=== PATIENT | female | born 1980 | race Native Hawaiian/Other Pacific Islander ===

== ENCOUNTER 2021-01-28 14:25 | Inpatient (IN) | payer MEDICARE, MEDICAID ==
[~2021-01-28] VITALS: Ht 152.4 cm; Wt 101.3 kg
[2021-01-28 16:49] VITALS: BP 194/81; PULSE 78; TEMP 97.8
--- NOTE | 2021-01-28 18:25 | NUR ---
Patient experiencing chest pain when leaning forward or coughing. Patient coughing frequently from CPR being performed, some clear sputum has been present. Patient admitted with an IV in the right AC. Two lab techs attempted to draw labs on the patient, they were unsuccessful. Charge nurse, Sal, attempted and specimens hemolyzed. Jose Angel was notified and called front desk assistant, Mindi, who accessed her dialysis cath and melissa labs. EKG was performed as ordered by Dr. Walter and Dr. Jurado. Heat pad was placed for patient's comfort. All admission paperwork was completed.
[2021-01-28 18:44] LABS: HEMOGLOBIN 11.1 g/dl (12.5-16.0); MEAN CELL VOLUME 95 fl (80.0-100.0); MEAN CORPUSCULAR HEMOGLOBIN 31 pg (27.0-31.0); MEAN CORPUSCULAR HGB CONC 33 g/dl (33.0-37.0); MEAN PLATELET VOLUME 9.2 fl (7.4-10.4); PLATELET COUNT 191 K/mm3 (130-400); RED BLOOD COUNT 3.53 M/mm3 (4.10-5.30); REDCELL DISTRIBUTION WIDTH-CV 17.6 % (11.5-14.5)
[2021-01-28 18:47] VITALS: BP 205/81; PULSE 82; TEMP 97.9
[2021-01-28 18:49] LABS: HEMATOCRIT 33.6 % (37.0-47.0)
[2021-01-28 18:55] LABS: ALBUMIN 3.9 gm/dL (3.5-5.0); BILIRUBIN,TOTAL 0.8 mg/dL (0.0-1.0); CALCIUM 8.6 mg/dL (8.4-10.2); CREATININE, serum 6.88 (0.52-1.25); POTASSIUM 4.4 mmol/L (3.4-5.0); TOTAL PROTEIN 8.5 gm/dL (6.4-8.2)
[2021-01-28 19:57] LABS: ANISOCYTOSIS 1+; BAND 1 % (0-10); LYMPHOCYTE 2 % (20.0-51.0); NEUTROPHILS 97 % (42.0-75.2); PLATELET ESTIMATE NORMAL (NORMAL)
[2021-01-28 20:00] VITALS: BP 148/66; PULSE 78
[2021-01-28 20:00] LABS: HYPOCHROMIA 1+
[2021-01-28 20:12] LABS: TROPONIN-I 0.126 ng/mL (0.000-0.035)
--- NOTE | 2021-01-28 21:31 | NUR ---
Assessment completed, alert and oriented. is at bedside, patient complaining of pain. Refused to get pain meds says that she got Tylenol at about 1800 will wait for more hour. Blood pressure was high as reported. Hydralazine given in previous shift. BP taken again it was 148/66. RN got a call from Lab for critical trop value of 0.126. Her latet WBC is 22.9. Dr Gill notified at around 2018. No order given.
[2021-01-28 23:56] VITALS: PULSE 80; TEMP 98.6
[2021-01-29 07:53] VITALS: BP 182/69; PULSE 92; TEMP 97.8
[2021-01-29 08:24] VITALS: BP 182/69; PULSE 92; TEMP 97.8
[2021-01-29 09:50] LABS: BASO # 0.1 (0.0-0.2); BASO % 0.4 % (0.0-2.0); EOS # 0.4 (0.0-0.7); EOS % 1.7 % (0-4.0); GRAN # 16.4 (1.4-6.5); GRAN % 78.6 % (42.2-75.2); HEMOGLOBIN 10.8 g/dl (12.5-16.0); LYMPH # 2.7 (1.2-3.4); MEAN CELL VOLUME 94 fl (80.0-100.0); MEAN CORPUSCULAR HEMOGLOBIN 31 pg (27.0-31.0); MEAN CORPUSCULAR HGB CONC 33 g/dl (33.0-37.0); MEAN PLATELET VOLUME 9.6 fl (7.4-10.4); MONO # 1.2 (0.1-0.6); MONO % 5.7 % (1.7-9.3); PLATELET COUNT 208 K/mm3 (130-400); RED BLOOD COUNT 3.54 M/mm3 (4.10-5.30); REDCELL DISTRIBUTION WIDTH-CV 17.3 % (11.5-14.5)
[2021-01-29 09:55] LABS: ALBUMIN 3.9 gm/dL (3.5-5.0); CALCIUM 8.4 mg/dL (8.4-10.2); CREATININE, serum 8.48 (0.52-1.25); POTASSIUM 4.5 mmol/L (3.4-5.0)
[2021-01-29 09:57] LABS: HEMATOCRIT 33.1 % (37.0-47.0)
[2021-01-29 10:10] LABS: TROPONIN-I 0.085 ng/mL (0.000-0.035)
[2021-01-29 10:22] LABS: PHOSPHOROUS 4.1 mg/dL (2.5-4.5)
[2021-01-29] MEDS ORDERED: NORVASC 10MG10 MG PO (11:04)
[2021-01-29] MEDS ORDERED: AURYXIA1 GM PO (11:06)
[2021-01-29] MEDS ORDERED: PHOS LO (11:07)
[2021-01-29] MEDS ORDERED: COREG12.5 MG PO (11:08)
[2021-01-29] MEDS ORDERED: COZAAR100 MG PO (11:08)
[2021-01-29] MEDS ORDERED: RENA-VITE1 TAB PO (11:10)
[2021-01-29] MEDS ORDERED: DIOVAN 80MG80 MG PO (11:11)
[2021-01-29 12:38] VITALS: BP 194/69; PULSE 79; TEMP 98.4
--- NOTE | 2021-01-29 14:10 | NUR ---
CARLOS met with the patient and her , Jose (ph#[phone]), to discuss discharge plan. The patient lives in [place] with her and four children. She reports indepedence with ADLs and does not have any DME. The patient states that she does not have a PCP yet. She reports that she recently moved here from [facility]. She states that her sister, Mili (ph#[phone]), is an RN and also her caregiver. She reports that Mili is getting her set up with a PCP. She receives her medications from [facility] and she reports no difficulties obtaining her meds. The patient does not have a DPOA-HC, but she states that she is working on getting one completed. The patient plans to return home with her family upon discharge. No additional needs at this time. *Discharge plan: home with family*
[2021-01-29 17:43] VITALS: BP 228/88; PULSE 81; TEMP 97.3
--- NOTE | 2021-01-29 17:51 | NUR ---
Patient had an echo this morning and was supposed to have a lexiscan as well. Patient was unable to lay flat d/t the pain she has been experiencing, so lexiscan was not completed. Nephrology ordered 1 mg of dilaudid for the patient's pain, but she had already recieved a hydrocodone/acetaminophen. This RN was instructed to still give the dilaudid, but the patient was sleeping and would fall back asleep during conversation. This RN told nephrology SURVEYING [employer]W STAKE RUNNERJuanita, that I did not feel comfortable giving her this medication as she was already sleeping. Juanita assessed and said to hold the dilaudid. Due to these events, the lexiscan was unable to be completed today. Patient has been sleeping comfortable in bed, and when awaken she begins moaning/coughing in pain. This RN gave the patient her ordered medications as well as 2 PRN pain medications. Patient does not ask for pain medication when she is just sitting in bed, but when she begins moving or coughing, the pain becomes extreme. The has been in the room and assisting the patient with whatever she needs.
[2021-01-29 21:35] VITALS: BP 183/72; PULSE 75
--- NOTE | 2021-01-29 21:36 | NUR ---
PT VITAL SIGNS RECHECKED AFTER IV PAIN MEDICATION GIVEN, VS STABLE AT THIS TIME. WILL CONTINUE TO MONITOR.
--- NOTE | 2021-01-29 22:00 | NUR ---
THIS NURSE RESPONDED TO PT'S CALL LIGHT REQUEST, PT WAS FOUND IN ROOM ON THE VERGE OF THROWING UP, PT REPORTS DIZZINESS WELL.PRN MEDICATION ADMINSTERED ORDERED. NURSE WILL CONTINUE TO MONITOR. CALL LIGHT WITHIN REACH.
--- NOTE | 2021-01-29 23:36 | NUR ---
PT HAD ONE BOUT OF EMESIS. 0.5L OF RE, LIQUID EMESIS NOTED N HOUSER BIN. EVIDENCE OF UNDIGESTED FOOD NOTED.
--- NOTE | 2021-01-30 00:12 | NUR ---
PT ALERT AND ORIENTED. PT COMPLAINING OF PAIN 9/10 ON CHEST. PT HAS CRACKLES IN BILATERAL BASES AUSCULATATED. PT REQUESTING IV PAIN MEDICATION, CLARIFIED WITH PROVIDER. PT GIVEN PRN IV PAIN MEDICATION PER ORDERS. PT STATES PARTIAL RELEIF. PT HAS CALL LIGHT IN PLACE.
[2021-01-30 00:23] VITALS: BP 173/63; PULSE 82; TEMP 97.6
--- NOTE | 2021-01-30 01:50 | NUR ---
PT REPORTS HEADACHE, REQUESTS TYLENOL.
[2021-01-30 02:10] VITALS: BP 195/73; PULSE 92
[2021-01-30 02:38] VITALS: BP 191/78; PULSE 89; TEMP 98.4
--- NOTE | 2021-01-30 02:48 | NUR ---
PT BLOOD PRESSURE 195/73, PRN HYDRALAZINE ADMINISTERED. RECHECKED BP 28 MINUTES LATER, 191/78. PHYSICIAN NOTIFIED OF ELEVATED BLOOD PRESSURE. NO ADDITIONAL ORDERS GIVEN AT THIS TIME. CLARIFIED TYLENOL USE FOR HEADACHE. WILL CONTINUE TO MONITOR.
[2021-01-30 03:44] VITALS: BP 210/91; PULSE 103
[2021-01-30 03:44] LABS: COLLECTION METHOD CLEAN CATCH
[2021-01-30 04:01] VITALS: BP 170/76; PULSE 85; TEMP 98.2
[2021-01-30 04:27] LABS: AMORPHOUS CRYSTAL Present /uL; PH 9 (5-8); URINE APPEARANCE Clear; URINE BACTERIA None Seen /hpf; URINE BILIRUBIN Negative (NEGATIVE); URINE BLOOD 3+ (NEGATIVE); URINE COLOR Yellow; URINE GLUCOSE 3+ (NEGATIVE); URINE KETONE Trace (NEGATIVE); URINE LEUKOCYTE ESTERASE Negative (NEGATIVE); URINE NITRATE Negative (NEGATIVE); URINE PROTEIN(semi-quant) 3+ (NEGATIVE); URINE RBC >50 /hpf; URINE UROBILINOGEN Negative (NEGATIVE)
--- NOTE | 2021-01-30 05:31 | NUR ---
PT ALERT AND ORIENTED DURING SHIFT. COMPLAINED OF CHEST PAIN FROM COMPRESSIONS PRIOR TO ARRIVAL, HEADACHE, AND LOWER BACK PAIN DURING SHIFT. PAIN MANAGED WITH IV AND PO PAIN MEDICATION PER ORDERS. PT HAD ELEVATED BLOOD PRESSURES DURING SHIFT, CONTACTED DR. RAMIREZ AND CARDIOLOGY. PT ABLE TO AMBULATE WITH STAND BY ASSIST, TOLERATED WELL. PT BLOOD PRESSURES WILL CONTINUE TO BE MONITORED AND MANAGED WITH PRN BLOOD PRESSURE MEDICATION PER ORDERS.
[2021-01-30 08:01] VITALS: BP 175/65; PULSE 91; TEMP 98.8
--- NOTE | 2021-01-30 08:45 | NUR ---
Shift assessment complete. Pt sitting up on bench, A&Ox4. Heart RRR. Lungs CTA. Reports intermittent nausea, worse after receiving dilaudid last night. Does report 8/10 pain to chest and back at this time, norco given per orders. BPs remain elevated at 175/65 this morning. aware and contiuing to monitor. Verbal order to administer scheduled BP meds and send to dialysis this AM. Pt denies further needs at this time. Continuing to monitor.
--- NOTE | 2021-01-30 09:22 | NUR ---
Pt off unit for dialysis at this time.
[2021-01-30 10:10] LABS: BASO # 0.1 (0.0-0.2); BASO % 0.6 % (0.0-2.0); EOS # 0.6 (0.0-0.7); EOS % 3.1 % (0-4.0); GRAN # 12.8 (1.4-6.5); GRAN % 72.9 % (42.2-75.2); HEMOGLOBIN 10.5 g/dl (12.5-16.0); LYMPH # 2.8 (1.2-3.4); MEAN CELL VOLUME 92 fl (80.0-100.0); MEAN CORPUSCULAR HEMOGLOBIN 31 pg (27.0-31.0); MEAN CORPUSCULAR HGB CONC 34 g/dl (33.0-37.0); MEAN PLATELET VOLUME 9.5 fl (7.4-10.4); MONO # 1.2 (0.1-0.6); PLATELET COUNT 203 K/mm3 (130-400); RED BLOOD COUNT 3.39 M/mm3 (4.10-5.30); REDCELL DISTRIBUTION WIDTH-CV 17.2 % (11.5-14.5)
[2021-01-30 10:15] LABS: HEMATOCRIT 31.3 % (37.0-47.0)
[2021-01-30 10:20] LABS: CALCIUM 8.5 mg/dL (8.4-10.2); CREATININE, serum 11.64 (0.52-1.25); PHOSPHOROUS 6.4 mg/dL (2.5-4.5); POTASSIUM 4.5 mmol/L (3.4-5.0)
--- NOTE | 2021-01-30 10:36 | NUR ---
Initial visit; Patient thanked Manager Budget for offering comfort, prayer and God's blessings.
[2021-01-30] MEDS ORDERED: ASPIRIN E.C. 8181 MG PO (11:03)
[2021-01-30] MEDS ORDERED: CATAPRES 0.1MG0.1 MG PO (11:05)
[2021-01-30] MEDS ORDERED: CEFAZOLIN1 G1 IV (11:15)
--- NOTE | 2021-01-30 12:20 | NUR ---
PATIENT TOLERATED HD TX WITH 700 ML FLUID REMOVAL TODAY. NEXT PLANNED HD TX ON Tuesday02/02/2021 @ [facility].
--- NOTE | 2021-01-30 12:45 | NUR ---
Discharge instructions discussed w/pt and all questions answered. IV to right AC removed w/tip intact. Pt escorted out to ride w/all belongings.
== END 2021-01-30 12:45 | disposition home or self-care (01) | DRG 682 ==
LOC: MEDICAL 14:25
PROVIDERS: ADMIT Internal Medicine Nephrology
DX: I13.11 Hypertensive heart and chronic kidney disease without heart failure, with stage 5 chronic kidney disease, or end stage renal disease (principal); I46.9 Cardiac arrest, cause unspecified; N18.6 End stage renal disease; J81.1 Chronic pulmonary edema; N25.81 Secondary hyperparathyroidism of renal origin; Z68.41 Body mass index [BMI] 40.0-44.9, adult; I31.3 Pericardial effusion (noninflammatory); T82.7XXA Infection and inflammatory reaction due to other cardiac and vascular devices, implants and grafts, initial encounter; I16.0 Hypertensive urgency; Z99.2 Dependence on renal dialysis; D63.1 Anemia in chronic kidney disease; E83.39 Other disorders of phosphorus metabolism; Z82.49 Family history of ischemic heart disease and other diseases of the circulatory system; M79.18 Myalgia, other site; E87.5 Hyperkalemia; I95.3 Hypotension of hemodialysis; E66.9 Obesity, unspecified; R79.89 Other specified abnormal findings of blood chemistry; I34.0 Nonrheumatic mitral (valve) insufficiency
CPT/HCPCS: J0690; J1170; J1644; J2405; J7030